=== PATIENT | female | born 1950 | race Caucasian/White ===

== ENCOUNTER 2024-11-07 09:03 | Outpatient (CLI) | payer MEDICARE, BC ==
[2024-11-07 10:20] LABS: Estimated GFR - POC 67.0
[2024-11-07] MEDS ORDERED: Iopamidol 370 76% 100 ML VIAL ONE (12:28)
== END 2024-11-07 09:04 | disposition home or self-care (01) ==
LOC: CSHCT 09:03
PROVIDERS: ATTEND Psychiatry & Neurology Neurology
DX: G70.00 Myasthenia gravis without (acute) exacerbation (principal)
CPT/HCPCS: 71270; 82565; Q9967

== ENCOUNTER 2024-11-10 10:20 | Outpatient (CLI) | payer MEDICARE, BC | END 2024-11-10 10:21 | disposition home or self-care (01) | LOC: CSHMAMMO 10:20 | PROVIDERS: ATTEND Internal Medicine | DX: Z12.31 Encounter for screening mammogram for malignant neoplasm of breast (principal) | CPT/HCPCS: 77063; 77067 ==